=== PATIENT | male | born 1970 | race Caucasian/White ===

== ENCOUNTER 2022-07-23 23:48 | Observation (INO) | payer SELFPAY ==
[2022-07-24 00:33] LABS: #Basophils 0.1 10x3/uL (0.0-0.2); #Monocytes 1.4 10x3/uL (0.0-1.1); %Basophils 0.6 % (0.0-2.0); %Eosinophils 0.1 % (0.0-6.0); %Lymphocytes 11.9 % (18.0-47.0); %Monocytes 11.5 % (0.0-10.0); %Neutrophils 75.6 % (40.0-75.0); Hemoglobin 14.2 g/dL (13.5-17.5); Mean Corpuscular Hemoglobin 30.3 pg (27.0-33.0); Mean Corpuscular Volume 89.1 fl (81.2-95.1); Mean Platelet Volume 9.2 fl (7.4-10.4); Platelet Count 304 10x3/uL (150-450); RBC Distribution Width 15.7 % (11.5-14.5); Red Blood Cell (RBC) Count 4.69 10x6/uL (4.32-5.72); White Blood Cell (WBC) Count 11.9 10x3/uL (3.5-10.5)
[2022-07-24] MEDS ORDERED: levETIRAcetam 500 MG TAB ONE ×2 (00:53→09:14)
[2022-07-24 01:03] LABS: ALT (SGPT) 8 U/L (8-55); AST (SGOT) 9 U/L (5-34); Albumin 4.1 g/dL (3.5-5.0); Alkaline Phosphatase 94 U/L (40-110); Anion Gap 17 mmol/L (10-20); BUN (Urea Nitrogen) 14 mg/dL (8.4-25.7); Bilirubin, Total 0.6 mg/dL (0.2-1.2); Calc. Creatinine Clearance 0 mL/min (70-130); Calcium 9.4 mg/dL (7.8-10.44); Carbon Dioxide 24 mmol/L (22-29); Chloride 103 mmol/L (98-107); Estimated GFR 106; Globulin 3.6 g/dL (2.4-3.5); Glucose 111 mg/dL (70-105); Potassium 3.7 mmol/L (3.5-5.1); Protein, Total 7.7 g/dL (6.0-8.3); Sodium 140 mmol/L (136-145)
[2022-07-24 03:00] LABS: SARS-CoV-2 NAA Rapid Test Not Detected (NotDetected)
[2022-07-24] MEDS ORDERED: Ondansetron PF 4 MG/2 ML Vial IVP PRN (03:37)
[2022-07-24] MEDS ORDERED: Acetaminophen 325 MG TAB PO PRN (03:37)
[2022-07-24] MEDS ORDERED: Guaifenesin DM 100-10/5 ML UDCUP PO PRN (03:37)
[2022-07-24] MEDS ORDERED: Senokot S 8.6-50 MG TAB PO PRN (03:37)
[2022-07-24] MEDS ORDERED: Calcium Carbonate 500 MG ChewTAB PO PRN (03:37)
[2022-07-24] MEDS ORDERED: Nicotine 14 MG PATCH ONE (04:23)
[2022-07-24 04:33] LABS: Magnesium 1.9 mg/dL (1.6-2.6)
[2022-07-24 04:45] VITALS: BMI 21.4
[2022-07-24] MEDS ORDERED: Potassium Chloride 20 MEQ TAB ONE (05:46)
[2022-07-24] MEDS ORDERED: Potassium Chloride 20 MEQ TAB PO SCH (06:00)
[2022-07-24] MEDS ORDERED: Lactated Ringer's 1,000 ML IV SCH (06:00)
[2022-07-24] MEDS ORDERED: Magnevist 469MG/ML 20 ML VIAL ONE (09:01)
[2022-07-24] MEDS: levETIRAcetam 500 MG TAB PO SCH ×2 (09:22→21:43)
[2022-07-24] MEDS: Gabapentin 100 MG CAP PO SCH (09:22)
[2022-07-25 08:33] VITALS: BP 120/64; TEMP 98.2
[2022-07-25] MEDS: levETIRAcetam 500 MG TAB PO SCH (09:29)
[2022-07-25] MEDS: Gabapentin 100 MG CAP PO SCH (09:29)
== END 2022-07-25 12:00 | disposition home or self-care (01) ==
LOC: CSHERS 23:48 → CSHERHOLD 07-24 04:36 → CSHTELE 07-24 10:04
PROVIDERS: ADMIT Student in an Organized Health Care Education/Training Program; ATTEND Physician Assistant
DX: R07.89 Other chest pain (principal); R93.0 Abnormal findings on diagnostic imaging of skull and head, not elsewhere classified; Z91.199 Patient's noncompliance with other medical treatment and regimen due to unspecified reason; D72.829 Elevated white blood cell count, unspecified; G40.909 Epilepsy, unspecified, not intractable, without status epilepticus; F41.9 Anxiety disorder, unspecified; R41.82 Altered mental status, unspecified; F32.A Depression, unspecified; Z20.822 Contact with and (suspected) exposure to COVID-19; R64 Cachexia; E44.0 Moderate protein-calorie malnutrition; Z68.21 Body mass index [BMI] 21.0-21.9, adult; F15.10 Other stimulant abuse, uncomplicated; Z79.899 Other long term (current) drug therapy
CPT/HCPCS: 36415; 70450; 70553; 71045; 80053; 83735; 84484; 85025; 93005; 95816; 95819; 95957; 96372; A9579; G0378; J1650; J7120; U0002